=== PATIENT | female | born 1935 | race Caucasian/White ===

== ENCOUNTER 2021-08-26 21:17 | Inpatient (IN) ==
[2021-08-27] MEDS ORDERED: Ondansetron 4 MG/2 ML VIAL IVP PRN (03:28)
[2021-08-27] MEDS ORDERED: Melatonin 3 MG TABLET PO PRN (03:28)
[2021-08-27] MEDS ORDERED: Naloxone 0.4 MG/ML INJ IVP PRN (03:28)
[2021-08-27] MEDS ORDERED: *HR* Enoxaparin 40 MG/0.4 ML SYRINGE SQ ONE (04:15)
[2021-08-27 05:14] LABS: Prothrombin Time 11.3 Seconds (9.4-12.1)
[2021-08-27 05:16] LABS: Activated Partial Thrombo Time 31.2 Seconds (26.0-36.0)
[2021-08-27 05:22] LABS: Alanine Aminotransferase 9 Units/L (7-52); Albumin 3.6 g/dL (3.5-5.7); Albumin/Globulin Ratio 1.6 (1.1-2.2); Alkaline Phosphatase 41 Units/L (34-104); Aspartate Amino Transferase 18 Units/L (13-39); BUN/Creatinine Ratio 29 (6-26); Bilirubin,Total 0.4 mg/dL (0.3-1.0); Blood Urea Nitrogen 13 mg/dL (8-23); Calcium 8.5 mg/dL (8.6-10.3); Carbon Dioxide 30 mEq/L (23-29); Chloride 94 mEq/L (98-107); Globulin 2.2 g/dL (2.4-3.5); Glucose 89 mg/dL (70-105); Magnesium 1.9 mg/dL (1.6-2.6); Osmolality,Calculated 266 (280-300); Potassium 3.8 mEq/L (3.5-5.1); Sodium 128 mEq/L (136-145); Total Protein 5.8 g/dL (6.4-8.9); eGFR For African Americans > 60 (> 60); eGFR For Non-African Americans > 60 (> 60)
[2021-08-27] MEDS ORDERED: Dextrose 4 GM Chewable Tablets PO PRN ×2 (07:01)
[2021-08-27] MEDS ORDERED: *HR* Dextrose 50 % in Water (Syg) 50 ML SYRINGE IVP PRN (07:01)
[2021-08-27] MEDS ORDERED: D5% in Water 1,000 ML IVC PRN (07:01)
[2021-08-27] MEDS: Budesonide/Formoterol 160/4.5 1 PUFF INH IH SCH ×2 (07:46→20:53)
[2021-08-27] MEDS: Ipratropium/Albuterol Neb 3 ML IH SCH ×4 (07:47→20:53)
[2021-08-27] MEDS: Chlorhexidine Rinse 15 ML MOUTHWASH MM SCH ×2 (08:00→21:31)
[2021-08-27 15:05] LABS: BUN/Creatinine Ratio 22 (6-26); Blood Urea Nitrogen 11 mg/dL (8-23); Calcium 8.4 mg/dL (8.6-10.3); Carbon Dioxide 31 mEq/L (23-29); Chloride 95 mEq/L (98-107); Glucose 98 mg/dL (70-105); Osmolality,Calculated 269 (280-300); Potassium 3.5 mEq/L (3.5-5.1); Sodium 130 mEq/L (136-145); eGFR For African Americans > 60 (> 60); eGFR For Non-African Americans > 60 (> 60)
[2021-08-27] MEDS ORDERED: 0.9 % Sodium Chloride 1,000 ML ONE ×2 (15:09→15:41)
[2021-08-27] MEDS ORDERED: Nitroglycerin 1,000 MCG/5 ML VIAL IV ONE (15:10)
[2021-08-27] MEDS ORDERED: Heparin 1,000 UNITS/500 mL 500 ML ONE (15:10)
[2021-08-27] MEDS ORDERED: ISOVUE-370 200 ML INFUS..BTL ONE (15:10)
[2021-08-27] MEDS ORDERED: *HR* Heparin 10,000 UNIT/10 ML VIAL ONE (15:10)
[2021-08-27] MEDS ORDERED: *HR* Midazolam HCl 2 MG/2 ML VIAL ONE (15:40)
[2021-08-27] MEDS ORDERED: *HR* FentaNYL (PF) 100 MCG/2 ML VIAL ONE (15:40)
[2021-08-27 17:20] LABS: Basophils % 0.5 %; Eosinophils % 0.7 %; Hematocrit 30.6 % (35.3-44.9); Hemoglobin 10.1 g/dL (11.5-15.4); Immature Granulocytes % 0.3 % (0-4); Lymphocytes # 1.2 K/mcL (0.6-4.6); Lymphocytes % 19.8 %; Mean Corpuscular Hemoglobin 29.1 pg (28.0-33.3); Mean Corpuscular Volume 88.2 fL (83.0-100.0); Mean Platelet Volume 9.7 fL (9.4-12.4); Monocytes # 0.7 K/mcL (0.0-1.3); Monocytes % 11.5 %; Platelet Count 227 K/mcL (140-400); Red Blood Count 3.47 M/mcL (3.82-4.97); Red Cell Distribution Width 14.6 % (11.5-14.5); Segmented Neutrophils % 67.2 %
[2021-08-27] MEDS: Nicotine 7 MG PATCH.TD24 TD SCH (19:11)
[2021-08-27 23:16] LABS: Bacteria,Urine Few per hpf (None-Few); Bilirubin,Urine Negative (Negative); Blood,Urine Negative (Negative); Clarity,Urine Turbid (Clear); Color,Urine Yellow (Yellow); Glucose,Urine (UA) Normal (Normal); Ketones,Urine Negative (Negative); Leukocyte Esterase,Urine Negative (Negative); Mucus,Urine Few per lpf (None-Few); Nitrite,Urine Negative (Negative); Protein,Urine Trace mg/dL (Neg-Trace); RBC,Urine 15-30 per hpf (0-3); Specific Gravity,Urine > 1.030 (1.010-1.025); Squamous Epithelial Cell,Urine Few per hpf (None-Few); Urobilinogen,Urine Normal (Normal); WBC,Urine 0-3 per hpf (0-3)
[2021-08-27 23:19] LABS: BUN/Creatinine Ratio 24 (6-26); Blood Urea Nitrogen 11 mg/dL (8-23); Calcium 8.6 mg/dL (8.6-10.3); Carbon Dioxide 29 mEq/L (23-29); Chloride 96 mEq/L (98-107); Glucose 73 mg/dL (70-105); Osmolality,Calculated 268 (280-300); Potassium 3.8 mEq/L (3.5-5.1); Sodium 130 mEq/L (136-145); eGFR For African Americans > 60 (> 60); eGFR For Non-African Americans > 60 (> 60)
[2021-08-27 23:22] LABS: Protein/Creatinine Ratio,Urine 0.17 mg/mg (0.00-0.20)
[2021-08-28] MEDS: Ipratropium/Albuterol Neb 3 ML IH SCH ×7 (00:47→23:49)
[2021-08-28 02:38] LABS: BUN/Creatinine Ratio 27 (6-26); Blood Urea Nitrogen 12 mg/dL (8-23); Calcium 8.6 mg/dL (8.6-10.3); Carbon Dioxide 28 mEq/L (23-29); Chloride 97 mEq/L (98-107); Glucose 91 mg/dL (70-105); Osmolality,Calculated 271 (280-300); Potassium 3.5 mEq/L (3.5-5.1); Sodium 131 mEq/L (136-145); eGFR For African Americans > 60 (> 60); eGFR For Non-African Americans > 60 (> 60)
[2021-08-28 02:40] LABS: Basophils % 0.5 %; Eosinophils % 0.2 %; Hematocrit 30.9 % (35.3-44.9); Hemoglobin 10.2 g/dL (11.5-15.4); Immature Granulocytes % 0.3 % (0-4); Lymphocytes % 16.7 %; Mean Corpuscular Hemoglobin 29.1 pg (28.0-33.3); Mean Platelet Volume 9.8 fL (9.4-12.4); Monocytes # 0.6 K/mcL (0.0-1.3); Monocytes % 10.4 %; Neutrophils # 4.4 K/mcL (1.6-8.9); Platelet Count 242 K/mcL (140-400); Red Blood Count 3.51 M/mcL (3.82-4.97); Red Cell Distribution Width 14.6 % (11.5-14.5); Segmented Neutrophils % 71.9 %; White Blood Count 6.2 K/mcL (4.3-11.1)
[2021-08-28 02:53] LABS: Thyroid Stimulating Hormone 0.835 mcIU/mL (0.340-5.600)
[2021-08-28 02:59] LABS: Prothrombin Time 11.5 Seconds (9.4-12.1)
[2021-08-28] MEDS: Budesonide/Formoterol 160/4.5 1 PUFF INH IH SCH ×2 (07:23→19:43)
[2021-08-28] MEDS: Chlorhexidine Rinse 15 ML MOUTHWASH MM SCH ×2 (08:47→22:37)
[2021-08-28] MEDS: Nicotine 7 MG PATCH.TD24 TD SCH (08:50)
[2021-08-28] MEDS ORDERED: Acetaminophen 325 MG TABLET PO PRN (13:44)
[2021-08-29 03:08] LABS: Basophils % 0.4 %; Eosinophils # 0.1 K/mcL (0.0-0.6); Eosinophils % 0.7 %; Hematocrit 28.9 % (35.3-44.9); Hemoglobin 9.7 g/dL (11.5-15.4); Immature Granulocytes % 0.3 % (0-4); Lymphocytes # 1.1 K/mcL (0.6-4.6); Lymphocytes % 15.5 %; Mean Corpuscular HGB Conc 33.6 g/dL (31.6-35.5); Mean Corpuscular Volume 86.5 fL (83.0-100.0); Mean Platelet Volume 10.1 fL (9.4-12.4); Monocytes # 0.7 K/mcL (0.0-1.3); Monocytes % 10.4 %; Platelet Count 223 K/mcL (140-400); Red Blood Count 3.34 M/mcL (3.82-4.97); Red Cell Distribution Width 14.6 % (11.5-14.5); Segmented Neutrophils % 72.7 %; White Blood Count 6.9 K/mcL (4.3-11.1)
[2021-08-29 03:32] LABS: BUN/Creatinine Ratio 35 (6-26); Blood Urea Nitrogen 16 mg/dL (8-23); Calcium 8.4 mg/dL (8.6-10.3); Carbon Dioxide 27 mEq/L (23-29); Chloride 99 mEq/L (98-107); Glucose 116 mg/dL (70-105); Magnesium 1.9 mg/dL (1.6-2.6); Osmolality,Calculated 276 (280-300); Potassium 3.4 mEq/L (3.5-5.1); Sodium 132 mEq/L (136-145); eGFR For African Americans > 60 (> 60); eGFR For Non-African Americans > 60 (> 60)
[2021-08-29] MEDS: Ipratropium/Albuterol Neb 3 ML IH SCH ×6 (04:18→23:38)
[2021-08-29] MEDS: Nicotine 7 MG PATCH.TD24 TD SCH (07:32)
[2021-08-29] MEDS: Chlorhexidine Rinse 15 ML MOUTHWASH MM SCH ×2 (07:32→20:36)
[2021-08-29] MEDS: Budesonide/Formoterol 160/4.5 1 PUFF INH IH SCH ×2 (08:07→20:36)
[2021-08-29] MEDS ORDERED: Potassium Chloride Elixir 20 MEQ/15 ML UDC PO ONE (08:30)
[2021-08-29] MEDS: Aspirin Enteric Coated 81 MG Tablet PO SCH (10:15)
[2021-08-29] MEDS: lisinopriL 10 MG TABLET PO SCH (15:33)
[2021-08-30 03:00] LABS: Basophils % 0.4 %; Eosinophils # 0.1 K/mcL (0.0-0.6); Eosinophils % 1.6 %; Hematocrit 30.1 % (35.3-44.9); Hemoglobin 10.3 g/dL (11.5-15.4); Immature Granulocytes % 0.3 % (0-4); Lymphocytes # 1.4 K/mcL (0.6-4.6); Lymphocytes % 20.4 %; Mean Corpuscular HGB Conc 34.2 g/dL (31.6-35.5); Mean Corpuscular Hemoglobin 29.9 pg (28.0-33.3); Mean Corpuscular Volume 87.5 fL (83.0-100.0); Monocytes # 0.8 K/mcL (0.0-1.3); Neutrophils # 4.6 K/mcL (1.6-8.9); Platelet Count 250 K/mcL (140-400); Red Blood Count 3.44 M/mcL (3.82-4.97); Red Cell Distribution Width 14.8 % (11.5-14.5); Segmented Neutrophils % 66.3 %; White Blood Count 6.9 K/mcL (4.3-11.1)
[2021-08-30 03:18] LABS: BUN/Creatinine Ratio 33 (6-26); Blood Urea Nitrogen 14 mg/dL (8-23); Calcium 8.8 mg/dL (8.6-10.3); Carbon Dioxide 26 mEq/L (23-29); Chloride 98 mEq/L (98-107); Glucose 101 mg/dL (70-105); Osmolality,Calculated 273 (280-300); Potassium 3.7 mEq/L (3.5-5.1); Sodium 131 mEq/L (136-145); eGFR For African Americans > 60 (> 60); eGFR For Non-African Americans > 60 (> 60)
[2021-08-30] MEDS: Ipratropium/Albuterol Neb 3 ML IH SCH ×6 (03:50→23:49)
[2021-08-30 07:12] LABS: Kappa Qnt Free Light Chains 14.41 mg/L (3.30-19.40); Lambda Qnt Free Light Chains 10.22 mg/L (5.71-26.30)
[2021-08-30] MEDS: Budesonide/Formoterol 160/4.5 1 PUFF INH IH SCH ×2 (07:41→19:52)
[2021-08-30] MEDS: Aspirin Enteric Coated 81 MG Tablet PO SCH (08:01)
[2021-08-30] MEDS: Chlorhexidine Rinse 15 ML MOUTHWASH MM SCH ×2 (08:01→20:19)
[2021-08-30] MEDS: Nicotine 7 MG PATCH.TD24 TD SCH (08:01)
[2021-08-30] MEDS: lisinopriL 10 MG TABLET PO SCH (08:02)
[2021-08-30] MEDS ORDERED: Isovue-370 500 ML BOTTLE IVP ONE ×2 (10:13→10:16)
[2021-08-31 03:14] LABS: BUN/Creatinine Ratio 39 (6-26); Blood Urea Nitrogen 20 mg/dL (8-23); Calcium 8.7 mg/dL (8.6-10.3); Carbon Dioxide 26 mEq/L (23-29); Chloride 100 mEq/L (98-107); Glucose 97 mg/dL (70-105); Osmolality,Calculated 279 (280-300); Potassium 4.2 mEq/L (3.5-5.1); Sodium 133 mEq/L (136-145); eGFR For African Americans > 60 (> 60); eGFR For Non-African Americans > 60 (> 60)
[2021-08-31] MEDS: Ipratropium/Albuterol Neb 3 ML IH SCH ×6 (04:01→23:36)
[2021-08-31] MEDS: Budesonide/Formoterol 160/4.5 1 PUFF INH IH SCH ×2 (07:09→20:04)
[2021-08-31] MEDS: Aspirin Enteric Coated 81 MG Tablet PO SCH (07:21)
[2021-08-31] MEDS: Chlorhexidine Rinse 15 ML MOUTHWASH MM SCH ×2 (07:21→21:41)
[2021-08-31] MEDS: lisinopriL 10 MG TABLET PO SCH (07:22)
[2021-08-31] MEDS: Nicotine 7 MG PATCH.TD24 TD SCH (07:22)
[2021-09-01 03:19] LABS: Basophils % 0.5 %; Eosinophils # 0.1 K/mcL (0.0-0.6); Eosinophils % 1.8 %; Hemoglobin 9.1 g/dL (11.5-15.4); Immature Granulocytes % 0.2 % (0-4); Lymphocytes # 1.4 K/mcL (0.6-4.6); Lymphocytes % 25.4 %; Mean Corpuscular HGB Conc 33.7 g/dL (31.6-35.5); Mean Corpuscular Hemoglobin 29.8 pg (28.0-33.3); Mean Corpuscular Volume 88.5 fL (83.0-100.0); Mean Platelet Volume 10.1 fL (9.4-12.4); Monocytes # 0.6 K/mcL (0.0-1.3); Monocytes % 11.5 %; Neutrophils # 3.4 K/mcL (1.6-8.9); Platelet Count 249 K/mcL (140-400); Red Blood Count 3.05 M/mcL (3.82-4.97); Red Cell Distribution Width 14.8 % (11.5-14.5); Segmented Neutrophils % 60.6 %; White Blood Count 5.6 K/mcL (4.3-11.1)
[2021-09-01 03:29] LABS: INR 1.1; Prothrombin Time 11.8 Seconds (9.4-12.1)
[2021-09-01 04:01] LABS: BUN/Creatinine Ratio 47 (6-26); Blood Urea Nitrogen 22 mg/dL (8-23); Calcium 8.5 mg/dL (8.6-10.3); Carbon Dioxide 27 mEq/L (23-29); Chloride 98 mEq/L (98-107); Glucose 89 mg/dL (70-105); Osmolality,Calculated 275 (280-300); Potassium 4.1 mEq/L (3.5-5.1); Sodium 131 mEq/L (136-145); eGFR For African Americans > 60 (> 60); eGFR For Non-African Americans > 60 (> 60)
[2021-09-01] MEDS: Ipratropium/Albuterol Neb 3 ML IH SCH ×6 (04:22→23:15)
[2021-09-01] MEDS ORDERED: Norepinephrine 4 MG in 0.9 % Sodium Chloride 250 ML IVC PRN (04:51)
[2021-09-01] MEDS ORDERED: *HR* Vasopressin 20 UNIT/ML VIAL ONE (06:17)
[2021-09-01] MEDS ORDERED: *HR* FentaNYL (PF) 100 MCG/2 ML VIAL ONE (06:58)
[2021-09-01] MEDS ORDERED: Buckersberg's Blood Cardioplegia PF SCH (07:00)
[2021-09-01] MEDS ORDERED: del Nido Cardioplegia Solution PF SCH (07:00)
[2021-09-01] MEDS ORDERED: del Nido Cardioplegia Solution PF ONE (07:00)
[2021-09-01] MEDS ORDERED: Heparin 15,000 UNIT in 0.9 % Sodium Chloride 500 ML IV ONE (07:00)
[2021-09-01] MEDS ORDERED: Protamine Sulfate 50 MG/5 ML VIAL IVP ONE (07:01)
[2021-09-01] MEDS ORDERED: *HR* Heparin 10,000 UNIT/10 ML VIAL ONE (07:01)
[2021-09-01] MEDS ORDERED: 0.9 % Sodium Chloride 2,000 ML ONE (07:02)
[2021-09-01] MEDS ORDERED: Heparin 1,000 UNITS/500 mL 2,000 ML ONE (07:02)
[2021-09-01] MEDS ORDERED: ISOVUE-370 200 ML INFUS..BTL ONE (07:02)
[2021-09-01] MEDS ORDERED: *HR* Norepinephrine 4 MG/4 ML VIAL IVC ONE (07:08)
[2021-09-01] MEDS: Chlorhexidine Rinse 15 ML MOUTHWASH MM SCH ×2 (07:17→20:48)
[2021-09-01] MEDS: Budesonide/Formoterol 160/4.5 1 PUFF INH IH SCH ×2 (07:22→19:54)
[2021-09-01] MEDS ORDERED: 0.9 % Sodium Chloride 1,000 ML ONE ×3 (07:40→07:46)
[2021-09-01] MEDS ORDERED: Vancomycin 1,000 MG VIAL ONE (07:50)
[2021-09-01] MEDS ORDERED: SODIUM CHLORIDE IV ONE (07:50)
[2021-09-01] MEDS ORDERED: [UNRECOGNIZED DRUG - OTHER] IV ONE (07:50)
[2021-09-01] MEDS ORDERED: Clindamycin 600 MG/50 ML 600 MG/50 ML IV.SOLN IVPB ONE (07:55)
[2021-09-01 09:05] LABS: Alpha 2 Globulin (PEP) 0.76 g/dL (0.48-1.05)
[2021-09-01 10:26] LABS: Immunoglobulin G 585 mg/dL (768-1632)
[2021-09-01 10:27] LABS: IFE Reflexed IFE Done; Immunoglobulin A 141 mg/dL (68-408); Immunoglobulin M 34 mg/dL (35-263)
[2021-09-01] MEDS: Aspirin Enteric Coated 81 MG Tablet PO SCH (13:06)
[2021-09-01] MEDS: Nicotine 7 MG PATCH.TD24 TD SCH (13:07)
[2021-09-01] MEDS: lisinopriL 10 MG TABLET PO SCH (13:40)
[2021-09-01] MEDS: Clindamycin 900 MG/50 ML 900 MG/50 ML IV.SOLN IVPB SCH ×2 (15:39→23:27)
[2021-09-02] MEDS: Ipratropium/Albuterol Neb 3 ML IH SCH ×2 (03:46→08:08)
[2021-09-02] MEDS ORDERED: Perflutren Lipid Microsphere 1.3 ML in 0.9 % Sodium Chloride 8.7 ML IVP PRN (06:00)
[2021-09-02] MEDS: Budesonide/Formoterol 160/4.5 1 PUFF INH IH SCH (08:08)
[2021-09-02] MEDS: Aspirin Enteric Coated 81 MG Tablet PO SCH (08:42)
[2021-09-02] MEDS: Chlorhexidine Rinse 15 ML MOUTHWASH MM SCH (08:43)
[2021-09-02] MEDS: lisinopriL 10 MG TABLET PO SCH (08:43)
[2021-09-02] MEDS: Nicotine 7 MG PATCH.TD24 TD SCH (08:43)
[2021-09-02 09:02] VITALS: BP 166/70
[2021-09-02 10:17] VITALS: PULSE 98; TEMP 98.3
[2021-09-02] MEDS ORDERED: Melatonin 3 MG TABLET PO PRN (10:18)
[2021-09-02] MEDS ORDERED: Acetaminophen 325 MG TABLET PO PRN (10:18)
[2021-09-02] MEDS ORDERED: *HR* Dextrose 50 % in Water (Syg) 50 ML SYRINGE IVP PRN (10:18)
[2021-09-02] MEDS ORDERED: Dextrose 4 GM Chewable Tablets PO PRN ×2 (10:18)
[2021-09-02] MEDS ORDERED: Ondansetron 4 MG/2 ML VIAL IVP PRN (10:18)
[2021-09-02] MEDS ORDERED: Naloxone 0.4 MG/ML INJ IVP PRN (10:18)
[2021-09-02] MEDS ORDERED: D5% in Water 1,000 ML IVC PRN (10:18)
[2021-09-02 11:15] LABS: Hematocrit 32.3 % (35.3-44.9)
[2021-09-02 11:23] VITALS: O2SAT 94
[2021-09-02 11:36] LABS: Hemoglobin 10.8 g/dL (11.5-15.4)
[2021-09-02] MEDS ORDERED: Ipratropium/Albuterol Neb 3 ML IH SCH (12:00)
[2021-09-02 12:05] LABS: BUN/Creatinine Ratio 40 (6-26); Blood Urea Nitrogen 21 mg/dL (8-23); Calcium 8.9 mg/dL (8.6-10.3); Carbon Dioxide 26 mEq/L (23-29); Chloride 95 mEq/L (98-107); Glucose 116 mg/dL (70-105); Osmolality,Calculated 274 (280-300); Potassium 3.2 mEq/L (3.5-5.1); Sodium 130 mEq/L (136-145); eGFR For African Americans > 60 (> 60); eGFR For Non-African Americans > 60 (> 60)
[2021-09-02] MEDS ORDERED: Budesonide/Formoterol 160/4.5 1 PUFF INH IH SCH (22:00)
[2021-09-03] MEDS ORDERED: Aspirin Enteric Coated 81 MG Tablet PO SCH (09:00)
[2021-09-03] MEDS ORDERED: Nicotine 7 MG PATCH.TD24 TD SCH (09:00)
[2021-09-03] MEDS ORDERED: Lisinopril-HCTZ 20-12.5mg TABLET PO SCH (09:00)
== END 2021-09-02 15:26 | disposition home or self-care (01) | DRG 267 ==
LOC: 3NENU → SUATTDRO 08-27 01:26 → ICNU 09-01 11:50 → 2NENU 09-02 09:49
PROVIDERS: ADMIT Internal Medicine; ATTEND Internal Medicine